=== PATIENT | female | born 1955 | race Caucasian/White ===

== ENCOUNTER → 2019-05-08 | Outpatient (CLI) | payer MEDICARE, BC ==
[~2019-05-08] MED LIST: ASPI81CH PO; ATEN100 PO; ATORVASTATIN CA20 MG PO; LEVSOD75 PO; METF500C PO
[2019-05-08 14:10] LABS: BASOPHILS ABSOLUTE AUTO 0.05 K/mm3 (0.00-0.23); BASOPHILS PERCENT AUTO 1 % (0-2); EOSINOPHILS ABSOLUTE AUTO 0.16 K/mm3 (0.00-0.68); EOSINOPHILS PERCENT AUTO 2 % (0-6); Hematocrit 44.7 % (33.0-51.0); Hemoglobin 15.2 g/dL (11.5-16.0); IMMATURE GRAN ABSOLUTE AUTO 0.03 K/mm3 (0.00-0.10); IMMATURE GRAN PERCENT AUTO 0 % (0-1); LYMPHOCYTES ABSOLUTE AUTO 2.05 K/mm3 (0.84-5.20); LYMPHOCYTES PERCENT AUTO 22 % (21-46); MONOCYTES ABSOLUTE AUTO 0.54 K/mm3 (0.16-1.47); MONOCYTES PERCENT AUTO 6 % (4-13); Mean Corpuscular HGB 31.7 pg (26.0-34.0); Mean Corpuscular Volume 93 fL (80-100); Mean Platelet Volume 10.2 fL (9.1-12.4); NEUTROPHILS ABSOLUTE AUTO 6.55 K/mm3 (1.96-9.15); NEUTROPHILS PERCENT AUTO 70 % (41-73); Platelet Count 272 K/mm3 (150-400); RDW Coefficient Variation 11.9 % (11.7-14.2); RDW Standard Deviation 40.9 fL (35.1-46.3); White Blood Cell Count 9.38 K/mm3 (4.00-11.30)
[2019-05-08 14:40] LABS: Alanine Aminotransfer (ALT/SGP 23 U/L (12-78); Albumin, Blood 4.3 g/dL (3.4-5.0); Albumin/Globulin Ratio 1.1 (0.8-1.8); Alk Phos 98 U/L (40-126); Anion Gap 13 mmol/L (6-16); Aspartate Aminotrans (AST/SGOT 23 U/L (12-37); Bilirubin, Total 0.8 mg/dL (0.1-1.0); Blood Urea Nitrogen 18 mg/dL (8-24); Bun/Creatinine Ratio 23.1 (12.0-20.0); CO2, Blood 28 mmol/L (21-32); CPK Creatine Kinase 88 U/L (26-192); Calcium, Blood 9.3 mg/dL (8.5-10.1); Chloride, Blood 103 mmol/L (98-108); Creatinine, Blood 0.78 mg/dL (0.40-1.00); Globulin, Blood 3.8 g/dL (2.2-4.0); Glomerular Filtration Rate >60 (60-); Glucose, Blood 105 mg/dL (70-99); Potassium, Blood 4.3 mmol/L (3.5-5.5); Sodium, Blood 144 mmol/L (136-145); Total Protein, Blood 8.1 g/dL (6.4-8.2)
== END | disposition home or self-care (01) ==
LOC: LAB EV 14:05 → LAB SHORT 14:05
PROVIDERS: Family Medicine
DX: M35.3 Polymyalgia rheumatica (principal)
CPT/HCPCS: 80053; 82550; 85025; 85651; 86140

== ENCOUNTER 2020-09-08 11:46 | Day surgery (SDC) | payer MEDICARE, BC ==
[~2020-09-08] VITALS: Ht 162.6 cm; Wt 78.1 kg
[~2020-09-08 11:46] MED LIST changes: +ALEVE220 MG PO; +CALCIUM CARBON500 M1 PO; +FOLI1 PO; +METTREX2.5 PO; +MULTIPLE VITAM1 EACH PO; +Prinivil10 MG PO; +TOPROL XL25 MG PO
== END 2020-09-08 14:05 | disposition home or self-care (01) ==
LOC: ORSCSDS 11:46
PROVIDERS: Internal Medicine Gastroenterology
PROC: 0DB58ZX Excision of Esophagus, Via Natural or Artificial Opening Endoscopic, Diagnostic (ICD-10-PCS; principal; 2020-09-08 13:15)
DX: R13.10 Dysphagia, unspecified (principal); C15.5 Malignant neoplasm of lower third of esophagus; K44.9 Diaphragmatic hernia without obstruction or gangrene; E11.9 Type 2 diabetes mellitus without complications; I10 Essential (primary) hypertension; E78.5 Hyperlipidemia, unspecified; E03.9 Hypothyroidism, unspecified; E66.9 Obesity, unspecified; Z68.30 Body mass index [BMI] 30.0-30.9, adult; Z79.899 Other long term (current) drug therapy; Z79.82 Long term (current) use of aspirin
CPT/HCPCS: 82947; 88305; 88341; 88342; 88360; J2704; J7120

== ENCOUNTER → 2020-09-27 | Outpatient (CLI) | payer MEDICARE ==
[2020-09-27 14:32] LABS: BASOPHILS ABSOLUTE AUTO 0.05 K/mm3 (0.00-0.23); BASOPHILS PERCENT AUTO 1 % (0-2); EOSINOPHILS ABSOLUTE AUTO 0.09 K/mm3 (0.00-0.68); EOSINOPHILS PERCENT AUTO 1 % (0-6); Hematocrit 40.1 % (33.0-51.0); Hemoglobin 13.5 g/dL (11.5-16.0); IMMATURE GRAN ABSOLUTE AUTO 0.01 K/mm3 (0.00-0.10); IMMATURE GRAN PERCENT AUTO 0 % (0-1); LYMPHOCYTES ABSOLUTE AUTO 1.64 K/mm3 (0.84-5.20); LYMPHOCYTES PERCENT AUTO 24 % (21-46); MONOCYTES PERCENT AUTO 6 % (4-13); Mean Corpuscular HGB 32.2 pg (26.0-34.0); Mean Corpuscular HGB Conc 33.7 g/dL (31.5-36.5); Mean Corpuscular Volume 96 fL (80-100); Mean Platelet Volume 11.4 fL (9.1-12.4); NEUTROPHILS ABSOLUTE AUTO 4.52 K/mm3 (1.96-9.15); NEUTROPHILS PERCENT AUTO 68 % (41-73); Platelet Count 245 K/mm3 (150-400); RDW Coefficient Variation 12.9 % (11.7-14.2); RDW Standard Deviation 45.1 fL (35.1-46.3); Red Blood Cell Count 4.19 M/mm3 (3.80-5.20); White Blood Cell Count 6.71 K/mm3 (4.00-11.30)
== END | disposition home or self-care (01) ==
LOC: LAB SHORT 10:55 → LAB 10:55
PROVIDERS: Nurse Practitioner
DX: R10.32 Left lower quadrant pain (principal)
CPT/HCPCS: 85025

== ENCOUNTER 2021-01-29 06:17 | Day surgery (SDC) | payer MEDICARE ==
[~2021-01-29 06:17] MED LIST changes: +NAPR220 PO; +ONDA4ODT MM; +SUCR1 PO
--- NOTE | 2021-01-29 07:44 | NUR ---
[facility]. SEE DOWNTIME PAPER WORK FOR ADMISSION HISTORY AND MEDICATIONS TAKEN.
--- NOTE | 2021-01-29 10:17 | NUR ---
PT RESTING COMFORTABLY. VSS.NADN. EATING BREAKFAST AT THIS TIME. R FEMORAL SITE REMAINS CLEAR. NO BLEEDING OR HEMATOMA NOTED. CALL LIGHT WITHIN REACH.
--- NOTE | 2021-01-29 11:58 | NUR ---
PT AMBULATES TO RESTROOM AND BACK WITHOUT DIFF. PT MEDIPORT FLUSHED WITH [facility] UNITS/5ML AND DC'D. INTACT. BANDAID APPLIED. NO BLEEDING NOTED. VSS. R FEMORAL SITE REMAINS CLEAR. PT DRESSES SELF WITHOUT DIFF.
--- NOTE | 2021-01-29 12:10 | NUR ---
PT VERBALIZES UNDERSTANDING WRITTEN AND VERBAL ORDERS. PT DC'D TO HOME VIA WC BY THIS NURSE.
== END 2021-01-29 22:52 | disposition home or self-care (01) ==
LOC: MHTC 06:17
DX: C15.9 Malignant neoplasm of esophagus, unspecified (principal); I10 Essential (primary) hypertension; E11.9 Type 2 diabetes mellitus without complications; E03.9 Hypothyroidism, unspecified; Z85.3 Personal history of malignant neoplasm of breast; Z79.84 Long term (current) use of oral hypoglycemic drugs
CPT/HCPCS: 36245; 75726; 76937; 99152; 99153; C1760; C1769; C1887; C1894; J1642; J1644; J2250; J3010; J7030; J7040; J7050; Q9967

== ENCOUNTER → 2021-08-17 | Outpatient (CLI) | payer MEDICARE ==
[2021-08-17 12:00] LABS: BASOPHILS ABSOLUTE AUTO 0.06 K/mm3 (0.00-0.23); BASOPHILS PERCENT AUTO 1 % (0-2); EOSINOPHILS PERCENT AUTO 1 % (0-6); Hematocrit 33.3 % (33.0-51.0); Hemoglobin 10.5 g/dL (11.5-16.0); IMMATURE GRAN ABSOLUTE AUTO 0.05 K/mm3 (0.00-0.10); IMMATURE GRAN PERCENT AUTO 1 % (0-1); LYMPHOCYTES ABSOLUTE AUTO 0.51 K/mm3 (0.84-5.20); LYMPHOCYTES PERCENT AUTO 5 % (21-46); MONOCYTES ABSOLUTE AUTO 0.79 K/mm3 (0.16-1.47); MONOCYTES PERCENT AUTO 7 % (4-13); Mean Corpuscular HGB 27.5 pg (26.0-34.0); Mean Corpuscular HGB Conc 31.5 g/dL (31.5-36.5); Mean Corpuscular Volume 87 fL (80-100); Mean Platelet Volume 9.5 fL (9.1-12.4); NEUTROPHILS ABSOLUTE AUTO 9.56 K/mm3 (1.96-9.15); NEUTROPHILS PERCENT AUTO 86 % (41-73); Platelet Count 287 K/mm3 (150-400); RDW Coefficient Variation 14.6 % (11.7-14.2); RDW Standard Deviation 45.3 fL (35.1-46.3); Red Blood Cell Count 3.82 M/mm3 (3.80-5.20); White Blood Cell Count 11.07 K/mm3 (4.00-11.30)
[2021-08-17 12:14] LABS: Albumin, Blood 2.9 g/dL (3.4-5.0); Albumin/Globulin Ratio 0.6 (0.8-1.8); Bilirubin, Total 0.5 mg/dL (0.1-1.0); Bun/Creatinine Ratio 27.8 (12.0-20.0); Calcium, Blood 8.5 mg/dL (8.5-10.1); Creatinine, Blood 0.72 mg/dL (0.40-1.00); Globulin, Blood 4.6 g/dL (2.2-4.0); Potassium, Blood 4.1 mmol/L (3.5-5.5); Total Protein, Blood 7.5 g/dL (6.4-8.2)
== END | disposition home or self-care (01) ==
LOC: LAB SHORT 11:55
PROVIDERS: Physician Assistant Medical
DX: I95.9 Hypotension, unspecified (principal)
CPT/HCPCS: 80053; 85025

== ENCOUNTER 2021-09-06 09:19 | Inpatient (IN) | payer MEDICARE ==
[~2021-09-06] VITALS: Ht 162.6 cm; Wt 69.0 kg
[2021-09-06 10:12] LABS: BASOPHILS ABSOLUTE AUTO 0.08 K/mm3 (0.00-0.23); BASOPHILS PERCENT AUTO 0 % (0-2); EOSINOPHILS ABSOLUTE AUTO 0.09 K/mm3 (0.00-0.68); EOSINOPHILS PERCENT AUTO 1 % (0-6); Hematocrit 26.4 % (33.0-51.0); Hemoglobin 8.5 g/dL (11.5-16.0); IMMATURE GRAN ABSOLUTE AUTO 0.23 K/mm3 (0.00-0.10); IMMATURE GRAN PERCENT AUTO 1 % (0-1); LYMPHOCYTES ABSOLUTE AUTO 0.59 K/mm3 (0.84-5.20); LYMPHOCYTES PERCENT AUTO 3 % (21-46); MONOCYTES ABSOLUTE AUTO 1.95 K/mm3 (0.16-1.47); MONOCYTES PERCENT AUTO 10 % (4-13); Mean Corpuscular HGB 26.7 pg (26.0-34.0); Mean Corpuscular HGB Conc 32.2 g/dL (31.5-36.5); Mean Corpuscular Volume 83 fL (80-100); Mean Platelet Volume 9.4 fL (9.1-12.4); NEUTROPHILS ABSOLUTE AUTO 15.73 K/mm3 (1.96-9.15); NEUTROPHILS PERCENT AUTO 84 % (41-73); Platelet Count 377 K/mm3 (150-400); RDW Coefficient Variation 16.1 % (11.7-14.2); RDW Standard Deviation 49.1 fL (35.1-46.3); Red Blood Cell Count 3.18 M/mm3 (3.80-5.20); White Blood Cell Count 18.67 K/mm3 (4.00-11.30)
[2021-09-06 10:28] LABS: Albumin, Blood 1.9 g/dL (3.4-5.0); Albumin/Globulin Ratio 0.4 (0.8-1.8); Bilirubin, Total 0.5 mg/dL (0.1-1.0); Calcium, Blood 8.5 mg/dL (8.5-10.1); Creatinine, Blood 0.48 mg/dL (0.40-1.00); Globulin, Blood 4.6 g/dL (2.2-4.0); Potassium, Blood 3.9 mmol/L (3.5-5.5); Total Protein, Blood 6.5 g/dL (6.4-8.2)
[2021-09-06] MEDS ORDERED: LEVFLO500 PO ×2 (13:23)
[2021-09-06] MEDS ORDERED: TRAM50 PO ×2 (13:25)
[2021-09-06] MEDS ORDERED: ACET500 PO ×2 (13:25)
[2021-09-06] MEDS ORDERED: METO50ER PO ×2 (13:26)
[2021-09-06] MEDS ORDERED: SERT50 PO ×2 (13:27)
[2021-09-06] MEDS ORDERED: GABA300 PO ×2 (13:27)
[2021-09-06 13:34] LABS: Influenza A, PCR NEGATIVE (NEGATIVE); Influenza B, PCR NEGATIVE (NEGATIVE); Resp Syncytial Virus, PCR NEGATIVE (NEGATIVE); SARS-Cov-2 (COVID-19) PCR, MMC NEGATIVE (NEGATIVE)
--- NOTE | 2021-09-06 14:34 | NUR ---
09/06/21 1434 Mi Nazario NO PREOP ANTIBIOTICS ORDERED PER . PATIENT WILL BEGIN ANTIBIOTICS POST OPERATIVELY PER .
--- NOTE | 2021-09-06 15:38 | NUR ---
MONITOR SHOWS RESP AT 29 AND THEY WERE NEVER 29. 18 WAS THE HIGHEST I NOTED
[2021-09-06] MEDS ORDERED: IMODIUM A-D2 M1 PO ×2 (18:05)
[2021-09-07 03:55] LABS: BASOPHILS PERCENT AUTO 1 % (0-2); EOSINOPHILS ABSOLUTE AUTO 0.21 K/mm3 (0.00-0.68); EOSINOPHILS PERCENT AUTO 1 % (0-6); Hematocrit 28.7 % (33.0-51.0); Hemoglobin 8.9 g/dL (11.5-16.0); IMMATURE GRAN PERCENT AUTO 1 % (0-1); LYMPHOCYTES ABSOLUTE AUTO 0.53 K/mm3 (0.84-5.20); LYMPHOCYTES PERCENT AUTO 3 % (21-46); MONOCYTES ABSOLUTE AUTO 1.04 K/mm3 (0.16-1.47); MONOCYTES PERCENT AUTO 7 % (4-13); Mean Corpuscular HGB 26.7 pg (26.0-34.0); Mean Corpuscular Volume 86 fL (80-100); Mean Platelet Volume 9.3 fL (9.1-12.4); NEUTROPHILS PERCENT AUTO 88 % (41-73); Platelet Count 389 K/mm3 (150-400); RDW Coefficient Variation 16.3 % (11.7-14.2); RDW Standard Deviation 51.2 fL (35.1-46.3); Red Blood Cell Count 3.33 M/mm3 (3.80-5.20); White Blood Cell Count 15.68 K/mm3 (4.00-11.30)
[2021-09-07 04:14] LABS: Albumin, Blood 1.9 g/dL (3.4-5.0); Albumin/Globulin Ratio 0.4 (0.8-1.8); Bilirubin, Total 0.3 mg/dL (0.1-1.0); Bun/Creatinine Ratio 20.6 (12.0-20.0); Calcium, Blood 8.8 mg/dL (8.5-10.1); Creatinine, Blood 0.44 mg/dL (0.40-1.00); Globulin, Blood 4.8 g/dL (2.2-4.0); Potassium, Blood 3.7 mmol/L (3.5-5.5); Total Protein, Blood 6.7 g/dL (6.4-8.2)
--- NOTE | 2021-09-07 06:29 | NUR ---
POD 1 S/P ABD WALL ABCESS I&D. PT VSS T/O NIGHT. DRESSING CHANGED X1 R/T SATURATION OF PURULANT DRNG. RUBEN DRAIN INTACT. PAIN MGD W/0.5MG DILAUDID W/REP RELIEF. PT DENIED N/V, IS VOIDING URINE W/O DIFFICULTY. IVF AND ABX CONT PER ORDERS. PT UP IN ROOM W/SBA.
--- NOTE | 2021-09-07 11:41 | NUR ---
Spiritual care visit conducted. Patient is lying in bed and alert. Pt immediately tells me about her cancer, her surgeries and her current medical condition. Pt is tearful at times as she talks about the weightiness of her prognosis and the love she has for her family. She discusses her deep desire to live and thrive in the midst of her her medical problems. She also shares about her zaina and how she finds strength in her prayers and Bible reading. I normalize her thoughts and emotions, reinforce helpful attitudes and practices and provide therapeutic listening, gentle bereavement counselor, encouragement, and prayer. Pt responds well and shows signs of being comforted and having increased peace. I will continue to remain available to patient and family.
--- NOTE | 2021-09-07 18:28 | NUR ---
SHIFT SUMMARY PATIENT ALERT AND ORIENTED THROUGHOUT SHIFT. POD #1 I&D OF ABD ABSCESS. RUBEN DRAIN, SIGNIFICANT DRAINAGE REQUIRING MULTIPLE DRESSING CHANGES PER SHIFT. J TUBE ALSO LEAKING ON DRAIN SPONGES. TOLERATING FULL LIQUIDS. MEDICATED FOR PAIN WITH LIQUID ACETAMINOPHEN AND IBUPROFEN. WILL REPORT OFF TO NOZZLEMAN.
--- NOTE | 2021-09-08 01:18 | NUR ---
DRESSING CHANGE: DRESSING CHANGED, SMALL AMT PURULANT DRNG FROM RUBEN SITES, J-TUBE SITE SATURATED W/GREEN/PURULANT DRNG. PT MARY WELL. LEFT ABD APPEARS MORE RED/FIRM THAN FROM PREV ASSESSMENT.
[2021-09-08 03:34] LABS: Vancomycin, Trough 10.4 ug/mL (5.0-10.0)
--- NOTE | 2021-09-08 06:49 | NUR ---
POD 2 S/P ABD I&D. PT VSS T/O NIGHT. DRESSING CHANGED X1 R/T SATURATION OF J TUBE SITE. ONLY SMALLAMT FROM RUBEN DRAIN. LEFT ABD APPEARS MORE RED AND FIRM THIS AM. PAIN MGD W/TYLENOL W/REP RELIEF. PO INTAKE MINIMAL, PT DENIED N/V.
[2021-09-09 05:44] LABS: BASOPHILS ABSOLUTE AUTO 0.05 K/mm3 (0.00-0.23); BASOPHILS PERCENT AUTO 1 % (0-2); EOSINOPHILS ABSOLUTE AUTO 0.24 K/mm3 (0.00-0.68); EOSINOPHILS PERCENT AUTO 3 % (0-6); Hematocrit 26.8 % (33.0-51.0); Hemoglobin 8.3 g/dL (11.5-16.0); IMMATURE GRAN ABSOLUTE AUTO 0.17 K/mm3 (0.00-0.10); IMMATURE GRAN PERCENT AUTO 2 % (0-1); LYMPHOCYTES ABSOLUTE AUTO 0.53 K/mm3 (0.84-5.20); LYMPHOCYTES PERCENT AUTO 7 % (21-46); MONOCYTES ABSOLUTE AUTO 0.55 K/mm3 (0.16-1.47); MONOCYTES PERCENT AUTO 8 % (4-13); Mean Corpuscular HGB 26.4 pg (26.0-34.0); Mean Corpuscular Volume 85 fL (80-100); Mean Platelet Volume 9.3 fL (9.1-12.4); NEUTROPHILS ABSOLUTE AUTO 5.75 K/mm3 (1.96-9.15); NEUTROPHILS PERCENT AUTO 79 % (41-73); Platelet Count 437 K/mm3 (150-400); RDW Coefficient Variation 16.6 % (11.7-14.2); RDW Standard Deviation 51.3 fL (35.1-46.3); Red Blood Cell Count 3.14 M/mm3 (3.80-5.20); White Blood Cell Count 7.29 K/mm3 (4.00-11.30)
[2021-09-09 05:57] LABS: Magnesium, Blood 2.1 mg/dL (1.6-2.4)
[2021-09-09 05:58] LABS: Albumin, Blood 1.9 g/dL (3.4-5.0); Albumin/Globulin Ratio 0.5 (0.8-1.8); Bilirubin, Total 0.4 mg/dL (0.1-1.0); Bun/Creatinine Ratio 19.6 (12.0-20.0); Calcium, Blood 8.3 mg/dL (8.5-10.1); Creatinine, Blood 0.41 mg/dL (0.40-1.00); Globulin, Blood 4.2 g/dL (2.2-4.0); Potassium, Blood 3.4 mmol/L (3.5-5.5); Total Protein, Blood 6.1 g/dL (6.4-8.2)
--- NOTE | 2021-09-09 07:38 | NUR ---
POD 3 S/P ABD WALL ABCESS I&D. PT VSS T/O NIGHT. DRESSINGS CHANGED X1 R/T SATURATION W/PURULANT DRNG. TUBE FEEDS CONT T/O NIGHT CURRENT RATE OF 80 ML/HR, PT DENIED N/V, HAD 1 LIQ BM. PO INTAKE MINIMAL; IVF AND ABX CONT PER ORDERS. PT AMB INDEP IN ROOM, REP STRENGHT IMPROVING. PT WAS AWAKE FOR MUCH OF NIGHT, MEDICATED FOR PAIN PER EMAR, PT REP BEST RELIEF W/TYLENOL AND IBUPROFEN TOGETHER. PT AWAKE VISITING W/SISTER IN ROOM THIS AM.
[2021-09-09] MEDS ORDERED: LEVFLO500 PO ×2 (14:10)
[2021-09-09] MEDS ORDERED: MIRALAX17 GM PO ×2 (14:13)
--- NOTE | 2021-09-09 15:02 | NUR ---
DISCHARGE: PACKET PRINTED AND PT/PT SPOUSE EDUCATED. MEDS FAXED TO [email or web address]. PT EDUCATED ON DRESSING CHANGE. ABD AND GAUZE REMOVED, WOUND CLEANSED AND PROTECTIVE BARRIER CREAM APPLIED AND GAUZE/ABD REAPPLIED, SITE APPEARED WNL. NEW DRAIN DRESSING PLACE TO J-TUBE SITE, TUBE FLUSHED WITH 30ML OF WATER. PT SENT HOME WITH DRESSING SUPPLIES. PT TO BE CONTACTED BY HOME HEALTH. [facility] DEACCESSED BY NELLY SPENCE RN. PT LEFT UNIT VIA WHEELCHAIR WITH SOSA SANCHEZ AT ABOUT 1500
== END 2021-09-09 14:59 | disposition home health service (06) | DRG 393 ==
LOC: ER 09:19 → SURS 13:24 → MEDS 13:24 → SURS 15:32
PROVIDERS: Emergency Medicine; Surgery; ADMIT Internal Medicine
PROC: 0H97XZZ Drainage of Abdomen Skin, External Approach (ICD-10-PCS; principal; 2021-09-06 13:30)
DX: K94.12 Enterostomy infection (principal); A41.81 Sepsis due to Enterococcus; L02.211 Cutaneous abscess of abdominal wall; E87.1 Hypo-osmolality and hyponatremia; L03.311 Cellulitis of abdominal wall; Z20.822 Contact with and (suspected) exposure to COVID-19; B95.2 Enterococcus as the cause of diseases classified elsewhere; D72.829 Elevated white blood cell count, unspecified; R00.2 Palpitations; E86.0 Dehydration; F32.A Depression, unspecified; Z85.01 Personal history of malignant neoplasm of esophagus; Z92.3 Personal history of irradiation; Z90.89 Acquired absence of other organs; Z98.890 Other specified postprocedural states; Z79.84 Long term (current) use of oral hypoglycemic drugs; Z79.899 Other long term (current) drug therapy; Z88.5 Allergy status to narcotic agent; Z88.6 Allergy status to analgesic agent; Z92.21 Personal history of antineoplastic chemotherapy; Y73.2 Prosthetic and other implants, materials and accessory gastroenterology and urology devices associated with adverse incidents
CPT/HCPCS: 0241U; 36415; 49465; 74177; 80048; 80053; 80202; 83605; 83735; 84100; 85025; 87040; 87070; 87075; 87077; 87186; 87205; 93005; 93010; 99285-25; A9270; J0295; J1170; J1642; J2250; J2370; J2405; J2543; J2704; J3010; J3370; J7030; J7050; J7060; Q9963; Q9967

== ENCOUNTER 2021-09-16 09:25 | Emergency (ER) | payer MEDICARE ==
[~2021-09-16] VITALS: Ht 162.6 cm; Wt 62.6 kg
[~2021-09-16 09:25] MED LIST changes: +ACET500 PO; +GABA300 PO; +IMODIUM A-D2 M1 PO; +LEVFLO500 PO; +METO50ER PO; +MIRALAX17 GM PO; +SERT50 PO; +TRAM50 PO
[2021-09-16 10:21] LABS: BASOPHILS ABSOLUTE AUTO 0.07 K/mm3 (0.00-0.23); BASOPHILS PERCENT AUTO 1 % (0-2); EOSINOPHILS ABSOLUTE AUTO 0.12 K/mm3 (0.00-0.68); EOSINOPHILS PERCENT AUTO 1 % (0-6); Hematocrit 33.9 % (33.0-51.0); Hemoglobin 10.5 g/dL (11.5-16.0); IMMATURE GRAN ABSOLUTE AUTO 0.03 K/mm3 (0.00-0.10); IMMATURE GRAN PERCENT AUTO 0 % (0-1); LYMPHOCYTES PERCENT AUTO 7 % (21-46); MONOCYTES ABSOLUTE AUTO 0.59 K/mm3 (0.16-1.47); MONOCYTES PERCENT AUTO 7 % (4-13); Mean Corpuscular HGB 26.5 pg (26.0-34.0); Mean Corpuscular Volume 86 fL (80-100); Mean Platelet Volume 9.2 fL (9.1-12.4); NEUTROPHILS ABSOLUTE AUTO 7.58 K/mm3 (1.96-9.15); NEUTROPHILS PERCENT AUTO 84 % (41-73); Platelet Count 463 K/mm3 (150-400); RDW Coefficient Variation 17.6 % (11.7-14.2); RDW Standard Deviation 54.4 fL (35.1-46.3); Red Blood Cell Count 3.96 M/mm3 (3.80-5.20); White Blood Cell Count 8.99 K/mm3 (4.00-11.30)
[2021-09-16 10:41] LABS: Albumin, Blood 2.6 g/dL (3.4-5.0); Albumin/Globulin Ratio 0.6 (0.8-1.8); Bilirubin, Total 0.4 mg/dL (0.1-1.0); Bun/Creatinine Ratio 36.2 (12.0-20.0); Creatinine, Blood 0.5 mg/dL (0.40-1.00); Globulin, Blood 4.7 g/dL (2.2-4.0); Potassium, Blood 4.6 mmol/L (3.5-5.5); Total Protein, Blood 7.3 g/dL (6.4-8.2)
== END 2021-09-16 12:47 | disposition home or self-care (01) ==
LOC: ER 09:25
PROVIDERS: Physician Assistant
DX: L02.211 Cutaneous abscess of abdominal wall (principal); Z79.899 Other long term (current) drug therapy; Z79.84 Long term (current) use of oral hypoglycemic drugs; Z88.5 Allergy status to narcotic agent; Z98.890 Other specified postprocedural states; Z93.4 Other artificial openings of gastrointestinal tract status
CPT/HCPCS: 36415; 74177; 80053; 85025; J1885; Q9967

== ENCOUNTER 2021-09-21 02:48 | Day surgery (SDC) | payer MEDICARE | END 2021-09-21 23:13 | disposition home or self-care (01) | LOC: WOUND 02:48 | DX: T81.31XA Disruption of external operation (surgical) wound, not elsewhere classified, initial encounter (principal); I10 Essential (primary) hypertension; E11.9 Type 2 diabetes mellitus without complications; E03.9 Hypothyroidism, unspecified; E11.59 Type 2 diabetes mellitus with other circulatory complications; E78.5 Hyperlipidemia, unspecified; Z88.5 Allergy status to narcotic agent; Z88.6 Allergy status to analgesic agent | CPT/HCPCS: G0463 ==

== ENCOUNTER 2021-09-23 12:07 | Day surgery (SDC) | payer MEDICARE | END 2021-09-23 22:47 | disposition home or self-care (01) | LOC: WOUND 12:07 | DX: T81.31XA Disruption of external operation (surgical) wound, not elsewhere classified, initial encounter (principal); L02.211 Cutaneous abscess of abdominal wall; I10 Essential (primary) hypertension; E11.59 Type 2 diabetes mellitus with other circulatory complications; E78.5 Hyperlipidemia, unspecified | CPT/HCPCS: A9270 ==

== ENCOUNTER 2021-09-25 09:50 | Day surgery (SDC) | payer MEDICARE | END 2021-09-25 23:12 | disposition home or self-care (01) | LOC: WOUND 09:50 | DX: T81.31XS Disruption of external operation (surgical) wound, not elsewhere classified, sequela (principal); L02.211 Cutaneous abscess of abdominal wall; I10 Essential (primary) hypertension; E11.59 Type 2 diabetes mellitus with other circulatory complications; E78.5 Hyperlipidemia, unspecified | CPT/HCPCS: G0463 ==

== ENCOUNTER 2021-09-29 01:24 | Day surgery (SDC) | payer MEDICARE | END 2021-09-29 05:39 | disposition home or self-care (01) | LOC: WOUND 01:24 | DX: L02.211 Cutaneous abscess of abdominal wall (principal); T81.30XS Disruption of wound, unspecified, sequela; I10 Essential (primary) hypertension; E11.59 Type 2 diabetes mellitus with other circulatory complications; E78.5 Hyperlipidemia, unspecified | CPT/HCPCS: A9270; G0463 ==

== ENCOUNTER 2021-12-28 14:47 | Observation (INO) | payer MEDICARE ==
[~2021-12-28] VITALS: Ht 162.6 cm; Wt 50.4 kg
[2021-12-28 15:46] LABS: BASOPHILS ABSOLUTE AUTO 0.07 K/mm3 (0.00-0.23); BASOPHILS PERCENT AUTO 1 % (0-2); EOSINOPHILS ABSOLUTE AUTO 0.01 K/mm3 (0.00-0.68); EOSINOPHILS PERCENT AUTO 0 % (0-6); Hematocrit 31.4 % (33.0-51.0); Hemoglobin 10.4 g/dL (11.5-16.0); IMMATURE GRAN ABSOLUTE AUTO 0.06 K/mm3 (0.00-0.10); IMMATURE GRAN PERCENT AUTO 1 % (0-1); LYMPHOCYTES ABSOLUTE AUTO 0.82 K/mm3 (0.84-5.20); LYMPHOCYTES PERCENT AUTO 8 % (21-46); MONOCYTES ABSOLUTE AUTO 1.35 K/mm3 (0.16-1.47); MONOCYTES PERCENT AUTO 12 % (4-13); Mean Corpuscular HGB 28.7 pg (26.0-34.0); Mean Corpuscular HGB Conc 33.1 g/dL (31.5-36.5); Mean Corpuscular Volume 87 fL (80-100); Mean Platelet Volume 10.2 fL (9.1-12.4); NEUTROPHILS ABSOLUTE AUTO 8.56 K/mm3 (1.96-9.15); NEUTROPHILS PERCENT AUTO 79 % (41-73); Platelet Count 309 K/mm3 (150-400); RDW Coefficient Variation 17.6 % (11.7-14.2); RDW Standard Deviation 54.5 fL (35.1-46.3); Red Blood Cell Count 3.62 M/mm3 (3.80-5.20); White Blood Cell Count 10.87 K/mm3 (4.00-11.30)
[2021-12-28 16:06] LABS: Albumin, Blood 2.5 g/dL (3.4-5.0); Albumin/Globulin Ratio 0.6 (0.8-1.8); Bilirubin, Total 0.5 mg/dL (0.1-1.0); Bun/Creatinine Ratio 17.1 (12.0-20.0); Calcium, Blood 8.9 mg/dL (8.5-10.1); Creatinine, Blood 0.64 mg/dL (0.40-1.00); Globulin, Blood 3.9 g/dL (2.2-4.0); Potassium, Blood 3.3 mmol/L (3.5-5.5); Total Protein, Blood 6.4 g/dL (6.4-8.2)
[2021-12-28 20:26] LABS: Anti-Xa UFH, PHA Monitoring <0.10 IU/mL; International Normalized Ratio 1.13; Prothrombin Time Results 11.8 Sec (9.7-11.5)
[2021-12-28] MEDS ORDERED: MIRT15ST PO (21:25)
[2021-12-29 04:45] LABS: Hemoglobin 9.9 g/dL (11.5-16.0); Mean Corpuscular HGB 27.7 pg (26.0-34.0); Mean Corpuscular HGB Conc 31.9 g/dL (31.5-36.5); Mean Corpuscular Volume 87 fL (80-100); Mean Platelet Volume 10.5 fL (9.1-12.4); Platelet Count 263 K/mm3 (150-400); RDW Coefficient Variation 17.6 % (11.7-14.2); RDW Standard Deviation 54.6 fL (35.1-46.3); Red Blood Cell Count 3.58 M/mm3 (3.80-5.20); White Blood Cell Count 9.36 K/mm3 (4.00-11.30)
[2021-12-29 05:13] LABS: Bun/Creatinine Ratio 22.4 (12.0-20.0); Calcium, Blood 8.2 mg/dL (8.5-10.1); Creatinine, Blood 0.4 mg/dL (0.40-1.00); Potassium, Blood 3.4 mmol/L (3.5-5.5)
--- NOTE | 2021-12-29 06:18 | NUR ---
SHIFT SUMMARY: ASSUMED CARE FROM RN IN ED. PT ARRIVING ON UNIT AT APPOXIMATELY 2130. A&OX4. ABLE TO AMBULATE FORM GURNEY TO BED. PT REPORTS HX OR RECENT FALL AT HOME, GAIT UNSTEADY, SBA NECESSARY FOR SAFETY. HR IS SR-ST IN THE LOW 100'S. AFEBRILE. COMPLAINING OF MIDSTERNAL PAIN THAT INCREASES WITH INSPIRATION 6/10. RECEIVED RELIEF FROM IV FENTYNAL. DENIES SOB BUT STATES UNABLE TO TAKE DEEP BREATHS DUE TO PAIN. VOIDING CLEAR, YELLOW URINE WITHOUT DIFFICUTLY. HEPRIN GETT INFUSING ORDERED, SEE EMAR. K RIDER INFUSED ORDERED. NO ACUTE EVENTS OVERNIGHT. CALL LIGHT IN REACH.
[2021-12-29] MEDS ORDERED: XARELTO15 MG PO (11:23)
[2021-12-29] MEDS ORDERED: XARELTO20 MG PO (11:23)
--- NOTE | 2021-12-29 12:14 | NUR ---
UPDATE DISCHARGE INSTRUCTIONS PROVIDED TO PT. PT EDUCATED ON MEDICATIONS AND CHANGES. ALL QUESTIONS ANSWERED. SPOUSE AT BEDSIDE. PT TO BE TAKEN OUT BY WC
== END 2021-12-29 12:33 | disposition home or self-care (01) ==
LOC: ER 14:47 → PCU 14:48
PROVIDERS: Pharmacist; Physician Assistant; ADMIT Internal Medicine
DX: I26.99 Other pulmonary embolism without acute cor pulmonale (principal); C15.9 Malignant neoplasm of esophagus, unspecified; E87.6 Hypokalemia; D64.9 Anemia, unspecified; Z88.5 Allergy status to narcotic agent
CPT/HCPCS: 36415; 71046; 71260; 80048; 80053; 83690; 84484; 85025; 85027; 85520; 85610; 85730; 93005; 93010; 93306; 93970; 96365-59; 96375; 96376; 99285-25; A9270; G0378; J1644; J3010; J3480; J7030; J7050; Q9967

== ENCOUNTER 2022-02-03 18:25 | Inpatient (IN) | payer MEDICARE ==
[~2022-02-03] VITALS: Ht 162.6 cm; Wt 49.3 kg
[~2022-02-03 18:25] MED LIST changes: +MIRT15ST PO; +XARELTO15 MG PO; +XARELTO20 MG PO
[2022-02-03 20:33] LABS: BASOPHILS ABSOLUTE AUTO 0.04 K/mm3 (0.00-0.23); BASOPHILS PERCENT AUTO 0 % (0-2); EOSINOPHILS PERCENT AUTO 0 % (0-6); Hemoglobin 6.5 g/dL (11.5-16.0); IMMATURE GRAN ABSOLUTE AUTO 0.53 K/mm3 (0.00-0.10); IMMATURE GRAN PERCENT AUTO 3 % (0-1); LYMPHOCYTES ABSOLUTE AUTO 0.53 K/mm3 (0.84-5.20); LYMPHOCYTES PERCENT AUTO 3 % (21-46); MONOCYTES ABSOLUTE AUTO 0.68 K/mm3 (0.16-1.47); MONOCYTES PERCENT AUTO 4 % (4-13); Mean Corpuscular HGB 29.4 pg (26.0-34.0); Mean Corpuscular HGB Conc 32.5 g/dL (31.5-36.5); Mean Corpuscular Volume 91 fL (80-100); Mean Platelet Volume 10.2 fL (9.1-12.4); NEUTROPHILS ABSOLUTE AUTO 13.82 K/mm3 (1.96-9.15); NEUTROPHILS PERCENT AUTO 89 % (41-73); NRBC ABSOLUTE 0.02 K/mm3 (0.00-0.02); NRBC Auto 0.1 /100 WBC (0.0-0.2); Platelet Count 196 K/mm3 (150-400); RDW Coefficient Variation 20.6 % (11.7-14.2); RDW Standard Deviation 60.8 fL (35.1-46.3); Red Blood Cell Count 2.21 M/mm3 (3.80-5.20)
[2022-02-03 20:51] LABS: Albumin, Blood 2.1 g/dL (3.4-5.0); Albumin/Globulin Ratio 0.7 (0.8-1.8); Bilirubin, Total 0.2 mg/dL (0.1-1.0); Bun/Creatinine Ratio 20.2 (12.0-20.0); Calcium, Blood 7.8 mg/dL (8.5-10.1); Creatinine, Blood 0.54 mg/dL (0.40-1.00); Globulin, Blood 3.2 g/dL (2.2-4.0); Potassium, Blood 3.4 mmol/L (3.5-5.5); Total Protein, Blood 5.3 g/dL (6.4-8.2)
[2022-02-03 22:15] LABS: Influenza A, PCR NEGATIVE (NEGATIVE); Influenza B, PCR NEGATIVE (NEGATIVE); Resp Syncytial Virus, PCR NEGATIVE (NEGATIVE); SARS-Cov-2 (COVID-19) PCR, MMC NEGATIVE (NEGATIVE)
[2022-02-04 05:40] LABS: BASOPHILS ABSOLUTE AUTO 0.03 K/mm3 (0.00-0.23); BASOPHILS PERCENT AUTO 0 % (0-2); EOSINOPHILS ABSOLUTE AUTO 0.01 K/mm3 (0.00-0.68); EOSINOPHILS PERCENT AUTO 0 % (0-6); Hematocrit 22.4 % (33.0-51.0); IMMATURE GRAN ABSOLUTE AUTO 0.15 K/mm3 (0.00-0.10); IMMATURE GRAN PERCENT AUTO 2 % (0-1); LYMPHOCYTES ABSOLUTE AUTO 0.81 K/mm3 (0.84-5.20); LYMPHOCYTES PERCENT AUTO 9 % (21-46); MONOCYTES ABSOLUTE AUTO 0.92 K/mm3 (0.16-1.47); MONOCYTES PERCENT AUTO 10 % (4-13); Mean Corpuscular HGB 28.7 pg (26.0-34.0); Mean Corpuscular HGB Conc 31.3 g/dL (31.5-36.5); Mean Corpuscular Volume 92 fL (80-100); Mean Platelet Volume 10.7 fL (9.1-12.4); NEUTROPHILS ABSOLUTE AUTO 7.25 K/mm3 (1.96-9.15); NEUTROPHILS PERCENT AUTO 79 % (41-73); Platelet Count 179 K/mm3 (150-400); RDW Coefficient Variation 18.9 % (11.7-14.2); RDW Standard Deviation 56.5 fL (35.1-46.3); Red Blood Cell Count 2.44 M/mm3 (3.80-5.20); White Blood Cell Count 9.17 K/mm3 (4.00-11.30)
[2022-02-04 06:03] LABS: Albumin/Globulin Ratio 0.7 (0.8-1.8); Bilirubin, Total 0.4 mg/dL (0.1-1.0); Bun/Creatinine Ratio 24.4 (12.0-20.0); Calcium, Blood 7.5 mg/dL (8.5-10.1); Creatinine, Blood 0.49 mg/dL (0.40-1.00); Globulin, Blood 2.9 g/dL (2.2-4.0); Magnesium, Blood 1.8 mg/dL (1.6-2.4); Potassium, Blood 3.3 mmol/L (3.5-5.5); Total Protein, Blood 4.9 g/dL (6.4-8.2)
--- NOTE | 2022-02-04 06:35 | NUR ---
SHIFT SUMMARY: PATIENT ARRIVED TO THE UNIT AROUND 0115. TRANSFERRED TO BED WITH 1 ASSIST. AOX3, IN GOOD SPIRIT. DENIES DIZZINESS UPON STANDING. 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 WAS PLACED ON XERELTO 2 WEEKS AGO, DECREASED DOWN ON DOSE RECENTLY, HAS HAD VEIW VOMITING MOMENTS OF SPOTTED BLOOD SPUTUM BUT WHEN SHE WENT TO THE BATHROOM LAST NIGHT, SHE HAD A LARGE LOOSE FLANK RED BLOOD STOOL. RECEIVED 1 UNIT OF PRBC IN ED. H/H THIS AM 10/16.4. NO PAIN NOTED. NO NAUSEA. HAS SLEPT SINCE SHE ARRIVED TO UNIT. STAGE 2 PRESSURE ULCER NOTED TO LEFT BUTTOCKS, PICTURE TAKEN AND IN CHART, DRESSING APPLIED. NS CONTINUES TO INFUSE WITH PROTONIX GTT. HR HAS DECREASED FROM 110 DOWN TO 90'S. VS WNL. PLAN IS FOR COBRA TRANSFER TO [place] DUE TO EXTENSIVE GASTRO HISTORY. CALL LIGHT REMAINS IN REACH.
[2022-02-04 08:26] LABS: Hematocrit 25.3 % (33.0-51.0); Hemoglobin 8.3 g/dL (11.5-16.0)
[2022-02-04 16:49] LABS: Hemoglobin 8.6 g/dL (11.5-16.0)
--- NOTE | 2022-02-04 18:02 | NUR ---
SHIFT SUMMARY PT HAS RECIEVED 1 UNIT OF PRBC TODAY, HGB REMAINS ABOVE 8 AT THIS TIME. VSS T/O THE DAY. PT CONTINUES TO HAVE RED STOOLS, DR GRANADOS CONTACTED FOR UPDATE AND POSSIBLE ADVANCE OF DIET. S/O AND FAMILY HAVE REMAINED AT THE BEDSIDE T/O THE DAY. VSS. PT DENIES SOB OR CP. PROTONIX REMAINS INFUSING. PT UP TO BATHROOM 1 PERSON ASSIST. DENIES PAIN UNTIL THE END OF THE SHIFT WHEN SHE REPORTS BLACKBURN AND TYLENOL SUSPENSION WAS ORDERED FOR PAIN. PT USES CALL LIGHT APPROPRIATELYE. ABD AOFT AND ROUND, SURGICAL SCARS NOTED FROM EXTENSIVE SURGICAL HX. BT ABSENT.
[2022-02-05] LABS: Hematocrit 24.9 % (33.0-51.0); Hemoglobin 8.4 g/dL (11.5-16.0)
--- NOTE | 2022-02-05 05:56 | NUR ---
SHIFT SUMMARY NO ACUTE EVENTS OVERNIGHT. PT ALERT AND ORIENTED X4. SR/ST 90-100'S. BP STABLE. ON RA SATS OVER 97%. PROTONIX GTT INFUSING AT 10ML/HR. HGB DROPPED FROM 8.6-8.4. NO BLOODY STOOL THIS EVENING. NO C/O PAIN OR DISCOMFORT. SBA FOR ADL'S. IN BED SLEEPING WITH CALL ALARM AT SIDE, WILL CONTINUE TO MONITOR UNTIL REPORT GIVEN TO ONCOMING RN
--- NOTE | 2022-02-05 07:19 | NUR ---
THIS WAS RECIEVING REPORT ON PT THIS AM, PT BEGAN WITH COUGHING EPISODE, BEGAN COUGHING UP COPIOUS AMOUNTS OF BLOOD AND CLOTS, APPROX 300ML TOTAL INTO EMESIS BAG. DR ABRAHAM WAS CALLED AT 0702, CBC WAS DRAWN REPEAT VITALS OBTAINED. PT NOTED TO BE HYPERTENSIVE WITH TACHYCARDIA ON MONITOR. DR GRANADOS CALLED WELL MESSAGE WAS LEFT WITH DR GRANADOS. ERADICATOR FROM ICU CONSULTED. DR ABRAHAM TO ROOM FOR ASSESSMENT, ERADICATOR FROM PCU TO ROOM FOR POWERGLIDE PLACEMENT PT ONLY HAS MEDIPORT ACCESS AT THIS TIME. THIS RN DISCUSSED CONCERNS WITH DR ABRAHAM ABOUT PT CONTIUING TO DETERIORATE, DECISION WAS MADE TO TRANSFER PT TO ICU FOR HIGHER LEVEL OF CARE. ERADICATOR ATTEMPTING POWERGLIDE PLACEMENT NOW
[2022-02-05 07:29] LABS: BASOPHILS ABSOLUTE AUTO 0.03 K/mm3 (0.00-0.23); BASOPHILS PERCENT AUTO 1 % (0-2); EOSINOPHILS ABSOLUTE AUTO 0.02 K/mm3 (0.00-0.68); EOSINOPHILS PERCENT AUTO 0 % (0-6); Hematocrit 26.7 % (33.0-51.0); Hemoglobin 8.8 g/dL (11.5-16.0); IMMATURE GRAN ABSOLUTE AUTO 0.08 K/mm3 (0.00-0.10); IMMATURE GRAN PERCENT AUTO 1 % (0-1); LYMPHOCYTES ABSOLUTE AUTO 1.06 K/mm3 (0.84-5.20); LYMPHOCYTES PERCENT AUTO 17 % (21-46); MONOCYTES ABSOLUTE AUTO 0.63 K/mm3 (0.16-1.47); MONOCYTES PERCENT AUTO 10 % (4-13); Mean Corpuscular HGB 30.2 pg (26.0-34.0); Mean Corpuscular Volume 92 fL (80-100); Mean Platelet Volume 9.8 fL (9.1-12.4); NEUTROPHILS ABSOLUTE AUTO 4.61 K/mm3 (1.96-9.15); NEUTROPHILS PERCENT AUTO 72 % (41-73); Platelet Count 222 K/mm3 (150-400); RDW Coefficient Variation 18.5 % (11.7-14.2); RDW Standard Deviation 54.7 fL (35.1-46.3); Red Blood Cell Count 2.91 M/mm3 (3.80-5.20); White Blood Cell Count 6.43 K/mm3 (4.00-11.30)
[2022-02-05 07:43] LABS: Bun/Creatinine Ratio 16.7 (12.0-20.0); Calcium, Blood 7.9 mg/dL (8.5-10.1); Creatinine, Blood 0.54 mg/dL (0.40-1.00); Potassium, Blood 3.2 mmol/L (3.5-5.5)
[2022-02-05 08:05] LABS: International Normalized Ratio 1.1; Prothrombin Time Results 11.5 Sec (9.7-11.5)
--- NOTE | 2022-02-05 09:00 | NUR ---
ICU TRANSFER PT RECEIVED FROM PCU 14 TO ICU 13 AT 0843. PT AWAKE, ALERT, ORIENTED X4. PT REPORTS FEELING "PUNY AND TIRED". UPON SLIDING PT OVER TO ICU BED, PT REPORTS ROOM SPINNING AND FEELING LIKE SHE MAY PASS OUT - SENSATION PASSED AFTER A FEW MOMENTS OF HOLDING STILL. MONITOR SHOWS SINUS TACH WITH HR 120-130, SBP 120-140, SPO2 99-100% ON ROOM AIR, RESP EVEN AND UNLABORED. PT REPORTS MILD ABDOMINAL PAIN WITH PALPATION X4 QUADRANTS, BOWEL TONES HYPOACTIVE X4. PT DENIES OTHER PAIN. EILEEN PG PRESENT AND RIGHT UPPER CHEST MEDIPORT ACCESSED, PROTONIX GTT INFUSING. PT HAS MEPILEX IN PLACE TO COCCYX/BUTTOCK AREA R/T SKIN BREAKDOWN ON LEFT BUTTOCK. PT'S SPOUSE, RICHARD, PRESENT AT BEDSIDE AND INCLUDED IN PLAN OF CARE. PT TO BEGIN NPO STATUS AT NOON FOR ANTICIPATED EGD THIS AFTERNOON WITH DR. GRANADOS. PT ALSO AWAITING BED AT [place] AT THIS TIME. WILL CONTINUE TO MONITOR PT CLOSELY.
--- NOTE | 2022-02-05 09:29 | NUR ---
VOMITING PT REPORTS FEELING PAIN IN BACK OF THROAT AND THEN PROCEEDS TO VOMIT - APPEARS BRIGHT RED WITH MIX OF SALIVA/WATER, APPROX 100 ML.
--- NOTE | 2022-02-05 10:28 | NUR ---
HYPOTENSION/DR. ABRAHAM PT UP TO BEDSIDE COMMODE FOR BOWEL MOVEMENT. UPON TRANSFER TO [facility], PT'S HR JUMPS TO 165, SBP 60, PT REPORTS FEELING DIZZY BUT NO LOSS OF CONSCIOUSNESS. PT PASSED APPROX 200 ML DARK RED, JELLY TYPE STOOL. PT BACK TO BED AND THEN VOMITS APPROX 50ML DARK RED BLOOD MIXED WITH FROTHY SPUTUM. CALL TO DR. ABRAHAM, ORDERS RECEIVED FOR STAT H&H, TRANSFUSE 1 UNIT RBC, AND THEN RE-CHECK H&H 1 HR AFTER TRANSFUSION.
--- NOTE | 2022-02-05 10:37 | NUR ---
Met with spouse in the hallway. Spouse is grieving and verbalizing the gan the Pt. has faced for the past year or so. Using theraputic listening an d calming presence establish rapport. Spouse displays evidence of both physical and emotional exhaustion. Prayed with Spouse in the hallway and committed to keep tabs on him and the Pt. throughout the day. Spouse verbalized gratitude for the spiritual care visit.
[2022-02-05 10:44] LABS: Hematocrit 24.5 % (33.0-51.0); Hemoglobin 8.2 g/dL (11.5-16.0)
--- NOTE | 2022-02-05 15:19 | NUR ---
Pt. is awake in bed and welcomes my visit. Pt. is pleasant and I fcilitate a life review. Pt. was unsettled by not being able to get treatment at the facility they have been using in [place]. Establish rapport and spouse arrived. Pt. displays evidence of engagement, and a confident hope. Prayed with Pt. and spouse. Both verbalized gratitude for the spiritual care visit.
[2022-02-05 16:13] LABS: Hematocrit 26.4 % (33.0-51.0); Hemoglobin 9.2 g/dL (11.5-16.0)
--- NOTE | 2022-02-05 16:56 | NUR ---
ACTIVITY/UPDATE PT WAS ABLE TO TRANSFER TO [facility] WITH STANDBY ASSIST. HR DID AGAIN INCREASE, FROM 100 TO 120'S. SBP ALSO DECREASED, FROM 140 TO 115 SYSTOLIC. PT DENIED ANY DIZZINESS OR FEELINGS OF PRE-SYNCOPE, RETURNED TO BED AFTER VOID WITHOUT INCIDENT. PT MEDICATED WITH REGLAN IV PER DR. GRANADOS'S ORDER. AWAITING EGD TEAM AT THIS TIME.
--- NOTE | 2022-02-05 17:38 | NUR ---
SHIFT SUMMARY PT WITH EPISODES OF BLOODY EMESIS AND STOOL THIS A.M. - SEE PREVIOUS NOTES. PT RECEIVED 1 UNIT PRBC THIS SHIFT. NO EPISODES OF BLEEDING SINCE APPROXIMATELY NOON. PT HAD EPISODES OF INCREASED TACHYCARDIA AND ORTHOSTATIC HYPOTENSION WITH TRANSFER TO COMMODE X2, OTHERWISE VITAL SIGNS HAVE REMAINED STABLE. PT ON ROOM AIR. DENIES SHORTNESS OF BREATH OR PAIN EXCEPT WITH ABDOMINAL PALPATION. PROTONIX GTT AND NS INFUSING PER ORDERS. AWAITING EGD THIS EVENING. WILL CONTINUE TO MONITOR PT CLOSELY AND GIVE HANDOFF REPORT TO ONCOMING RN.
--- NOTE | 2022-02-05 18:04 | NUR ---
02/05/22 1804 Zaheer Dejesus History, Chart, Medications and Allergies reviewed before start of procedure.MONITOR INTACT WITH CONTINUOUS PULSE OXIMETRY AND INTERMITTENT BP.3-LEAD EKG REVIEWED WITH PHYSICIAN PRIOR TO START OF PROCEDURE.O2 VIA POM INTACT THROUGHOUT SEDATION/PROCEDURE. Bite Block Placed PATIENT DETERMINED TO BE ASA APPROPRIATE FOR PROPOFOL SEDATION PRIOR TO START OF PROCEDURE BY MALLAMPATI CLASS 1 AIRWAY: COMPLETE VISULATIZATION OF THE SOFT PALATE.
--- NOTE | 2022-02-05 19:10 | NUR ---
EGD COMPLETE. PT HAS EROSION OF STOMACH/BOWEL TISSUE AT SITE OF PREVIOUS STENT PLACEMENT WITH SIGNS OF ACTIVE BLEEDING. PER DR GRANADOS, PLAN TO CONTINUE PROTONIX GTT, CHECK H&H Q4H AND TRANSFUSE PRBC BASED ON HEMOGLOBIN LEVELS. PT MAY HAVE CLEAR LIQUIDS TODAY AND ADVANCE TO FULL LIQUIDS TOMORROW IF PT TOLERATES. DR GRANADOS TO COME BACK TO ROOM AFTER PT FULLY CLEARS SEDATION TO DISCUSS RESULTS OF EGD WITH PT.
[2022-02-05 20:19] LABS: Hematocrit 26.6 % (33.0-51.0); Hemoglobin 9.2 g/dL (11.5-16.0)
--- NOTE | 2022-02-05 21:16 | NUR ---
ASSUMED CARE OF PT AT 1900. PT PRESENTS IN PROCESS OF ENDOSCOPY WITH DR GRANADOS. REPORT RECEIVED AT BEDSIDE AND ADDITIONAL INFORMATION BY DR GRANADOS AND ENDOSCOPY TEAM. PT AWAKENS FROM PROCEDURE WELL, AND IS UP TO BEDSIDE COMMODE WITHOUT VERTIGO. DOES HAVE HEART RATE NEAR 100 BPM'S. PT PASSES MAROON COLORED STOOL. HAVE ALLOWED SPOUSE TO COME BACK TO ROOM, AND ALLOWED QUESTIONS. PT HAS H/H DONE WHICH IS UNCHANGED FROM PREVIOUS. PARAMETERS FOR TRANSFUSIONS IN CHART AND WILL MONITOR IF NECESSARY. PT ALERT AND ORIENTED. PLEASANT AND COOPERATIVE WITH CARE AND ASSESSMENT. WILL REVIEW CHART AND PLAN OF CARE FOR THIS PT.
[2022-02-06 00:36] LABS: Hematocrit 24.1 % (33.0-51.0); Hemoglobin 8.4 g/dL (11.5-16.0)
--- NOTE | 2022-02-06 02:28 | NUR ---
PT CONTINUES TO REST IN BED. TURNS HERSELF IN BED. NO S/S ACTIVE BLEEDING AT THIS TIME. WILL CONTINUE TO MONITOR
[2022-02-06 04:28] LABS: Hematocrit 22.8 % (33.0-51.0)
--- NOTE | 2022-02-06 06:24 | NUR ---
PT HAS HAD SEVERAL MAROON TO RED STOOLS THIS NIGHT. NO COMPLAINTS OF GI UPSET. NO VERTIGO. VSS THROUGHOUT THE NIGHT. TRANSFERS TO BEDSIDE COMMODE WITH STANDBY ASSIST. ONE UNIT PRBC'S INFUSING AT THIS TIME. NO S/S TRANSFUSION REACTIONS TO NOTE. PT REMAINS PLEASANT AND COOPERATIVE WITH CARE. WILL CONTINUE TO MONITOR PT, AND WILL REPORT OFF TO ONCOMING RN.
[2022-02-06 09:22] LABS: Hematocrit 29.9 % (33.0-51.0); Hemoglobin 10.2 g/dL (11.5-16.0)
[2022-02-06 09:46] LABS: Albumin/Globulin Ratio 0.7 (0.8-1.8); Bilirubin, Total 0.6 mg/dL (0.1-1.0); Bun/Creatinine Ratio 16.7 (12.0-20.0); Calcium, Blood 7.8 mg/dL (8.5-10.1); Creatinine, Blood 0.48 mg/dL (0.40-1.00); Globulin, Blood 2.9 g/dL (2.2-4.0); Potassium, Blood 2.9 mmol/L (3.5-5.5); Total Protein, Blood 4.9 g/dL (6.4-8.2)
--- NOTE | 2022-02-06 11:33 | NUR ---
REASSESSMENT PT REMAINS ALERT AND ORIENTED. SHE IS GETTING UP TO THE COMMODE WITH MINIMAL ASSISTANCE, BUT STILL CALLS APPROPRIATELY FOR STAFF TO BE PRESENT. DENIES ANY DIZZINESS. SHE HAS HAD 1 LIQUID BM, DARK RED. DR. ABRAHAM SAID HE SPOKE WITH [facility] AND PT IS NOW 4TH ON THE LIST. LUNGS REMAIN CLEAR, RA. SR TO SIT WITH RATE 90-LOW 100S, BP STABLE. DIET ADVANCED TO FULL LIQUID PT HAS BEEN TOLERATING CLEAR LIQUIDS AND DR. GRANADOS GAVE VERBAL OK TO ADVANCE YESTERDAY PER FRANDY MONAE. POTASSIUM REPLACEMENT ORDERED BY DR. ABRAHAM. PT REFUSED TO TRY AND SWALLOW THE PILL POTASSIUM SO SWITCHED TO LIQUID, WHICH PT IS SIPPING ON BUT SAYING SHE DOESN'T KNOW IF SHE WILL BE ABLE TO DRINK IT ALL. PT IS RECEIVING IV POTASSIUM WELL. PT'S ROXIE HAS BEEN PRESENT FOR MOST OF THE MORNING AND PT'S AT THE BEDSIDE NOW. ALL HAVE BEEN UPDATED.
[2022-02-06 11:53] LABS: Hematocrit 28.9 % (33.0-51.0); Hemoglobin 9.7 g/dL (11.5-16.0)
--- NOTE | 2022-02-06 14:58 | NUR ---
SPOKE WITH DR. ABRAHAM ABOUT ORDER TO DECREASE FREQUENCY OF H/H CHECKS. UPDATED HIM ON PT'S HEMATEMESIS WITH BLOOD CLOTS AROUND NOON TODAY AND HE SAID TO KEEP CHECKS EVERY 6 HOURS.
--- NOTE | 2022-02-06 16:46 | NUR ---
SHIFT SUMMARY PT HAS CONTINUED TO FEEL NAUSEOUS SINCE SHE VOMITTED SOME BLOOD AROUND NOON. SHE TOLERATED HER NOON CARAFATE, BUT DIDN'T WANT TO TRY THE 2ND DOSE OF POTASSIUM. HER H/H IS ONCE AGAIN SLOWLY DROPPING. SPOKE WITH DR. GRANADOS AND HE AGREES WITH KEEPING H/H Q4 DUE TO PT'S EMESIS. BP HAS HELD STABLE, BUT PT'S HR HAS BEEN INCREASING THROUGHOUT THE AFTERNOON, CURRENTLY 120. LUGNS REMAIN CLEAR, RA. VOIDING WITHOUT ISSUE. PT'S SPENT MOST OF THE AFTERNOON WITH HER. CONTINUING TO MONITOR.
--- NOTE | 2022-02-06 17:59 | NUR ---
PT HAD EPISODE OF EMESIS WHICH CONSISTED OF MIX OF CLEAR/BUBBLY LIQUID AND RED LIQUID WITH NO CLOTS, TOTAL 120 ML.
[2022-02-06 19:35] LABS: Hemoglobin 8.5 g/dL (11.5-16.0)
[2022-02-06 23:56] LABS: Hematocrit 24.6 % (33.0-51.0); Hemoglobin 8.5 g/dL (11.5-16.0)
[2022-02-07 04:51] LABS: BASOPHILS ABSOLUTE AUTO 0.04 K/mm3 (0.00-0.23); BASOPHILS PERCENT AUTO 1 % (0-2); EOSINOPHILS ABSOLUTE AUTO 0.02 K/mm3 (0.00-0.68); EOSINOPHILS PERCENT AUTO 0 % (0-6); Hematocrit 23.4 % (33.0-51.0); IMMATURE GRAN ABSOLUTE AUTO 0.04 K/mm3 (0.00-0.10); IMMATURE GRAN PERCENT AUTO 1 % (0-1); LYMPHOCYTES ABSOLUTE AUTO 0.51 K/mm3 (0.84-5.20); LYMPHOCYTES PERCENT AUTO 6 % (21-46); MONOCYTES ABSOLUTE AUTO 0.59 K/mm3 (0.16-1.47); MONOCYTES PERCENT AUTO 7 % (4-13); Mean Corpuscular HGB 30.5 pg (26.0-34.0); Mean Corpuscular HGB Conc 34.2 g/dL (31.5-36.5); Mean Corpuscular Volume 89 fL (80-100); Mean Platelet Volume 9.9 fL (9.1-12.4); NEUTROPHILS ABSOLUTE AUTO 7.19 K/mm3 (1.96-9.15); NEUTROPHILS PERCENT AUTO 86 % (41-73); Platelet Count 180 K/mm3 (150-400); RDW Coefficient Variation 19.5 % (11.7-14.2); RDW Standard Deviation 56.8 fL (35.1-46.3); Red Blood Cell Count 2.62 M/mm3 (3.80-5.20); White Blood Cell Count 8.39 K/mm3 (4.00-11.30)
[2022-02-07 05:11] LABS: Bun/Creatinine Ratio 9.8 (12.0-20.0); Calcium, Blood 7.1 mg/dL (8.5-10.1); Creatinine, Blood 0.41 mg/dL (0.40-1.00); Potassium, Blood 3.3 mmol/L (3.5-5.5)
--- NOTE | 2022-02-07 07:27 | NUR ---
DISCUSSED WITH DR CONTRERAS PT'S NIGHT WITH HER EMESIS OF BLOOD CLOTS. ORDERS RECEIVED. PT UP TO BEDSIDE COMMODE WHEREAS SHE BECOMES LIGHTHEADED.
--- NOTE | 2022-02-07 08:29 | NUR ---
AM NOTE... ASSUMED CARE OF PT AT 0700, AT THE START OF THIS SHIFT THE PT WAS UP TO THE BSC TO VOID, THE PT'S HR INCREASED FROM SINUS TACH IN THE 100'S-110'S TO THE 150'S-160'S. THE PT HAD AN EPISODE OF EMESIS. 200MLS OF COCO RED BLOOD WERE NOTED IN THE EMESIS BAG. THE PT VOIDED AND ALSO HAD A LIQUID BRIGHT MAROON STOOL. WHILE UP TO THE BSC THE PT STATED SHE FELT DIZZY AND "FUZZY" SHE WAS ALSO PALE. THE PT WAS HELPED BACK TO BED, PT WAS ALSO HYPOTENSIVE DURING THIS TIME WITH SBPs IN THE LOW 90'S. ONCE BACK INTO BED THE PT'S BP AND HR IMPROVED BACK TO THE LOW 100'S-110'S. TRACE EDEMA IS NOTED TO THE PT'S BLE. SHE IS ON RA WITH O2 SATS >95% L/S CLEAR T/O. RR IS 12-16. BT PRESENT AND HYPOACTIVE, ABD IS TENDER TO PALPATION. CURRENTLY THE PT IS GETTING 1 UNIT OF PRBCs. THE PT'S IS AT THE BEDSIDE. HE WAS UPDATED ON THE PT'S CONDTION AND PLAN OF CARE FOR THE DAY. CALL LIGHT IN REACH WILL CONTINUE TO MONITOR.
[2022-02-07 08:45] LABS: International Normalized Ratio 1.18; Prothrombin Time Results 12.3 Sec (9.7-11.5)
--- NOTE | 2022-02-07 10:44 | NUR ---
PT UPDATE.... THE PT'S PRBCs ENDED AT 0920, THE PT'S HR CONTINUES TO BE SINUS TACH IN THE 100'S-110'S AND BP IS MUCH IMPROVED. THE PT STATES SHE "FEELS BETTER, NO LONGER FUZZY." PT'S COLOR HAS IMPROVED WELL. PT WAS REQUESTING HER BREAKFAST TRAY. THE PT'S SON AND DAUGHTER ARE ALSO AT THE BEDSIDE. ALL FAMILY UPDATED ON THE PLAN OF CARE AND PLAN TO TRANSFER TO [facility]. WILL CONTINUE TO MONITOR.
[2022-02-07 10:54] LABS: Hematocrit 29.6 % (33.0-51.0); Hemoglobin 9.7 g/dL (11.5-16.0)
--- NOTE | 2022-02-07 12:23 | NUR ---
PT TRANSFER TO [facility]... PT LEFT ICU WITH EMS ESCORT TO [facility] RM 21. PT WAS TAKEN BY EMS AT 1220. REPORT CALLED TO JEFFERY WISE AT [facility]. ALL PT'S BELONGINGS SENT WITH THE PT'S .
== END 2022-02-07 12:28 | disposition short-term general hospital (02) | DRG 920 ==
LOC: ER 18:25 → PCU 18:26 → ER 18:26 → PCU 18:26 → ICUW 02-04 15:55 → PCU 02-04 15:56 → ICUW 02-05 08:36
PROVIDERS: Emergency Medicine; Internal Medicine; Internal Medicine Gastroenterology; ADMIT Student in an Organized Health Care Education/Training Program
PROC: 30233N1 Transfusion of Nonautologous Red Blood Cells into Peripheral Vein, Percutaneous Approach (ICD-10-PCS; principal; 2022-02-04)
PROC: 30233N1 Transfusion of Nonautologous Red Blood Cells into Peripheral Vein, Percutaneous Approach (ICD-10-PCS; 2022-02-05)
PROC: 0DJ08ZZ Inspection of Upper Intestinal Tract, Via Natural or Artificial Opening Endoscopic (ICD-10-PCS; 2022-02-05)
PROC: 30233N1 Transfusion of Nonautologous Red Blood Cells into Peripheral Vein, Percutaneous Approach (ICD-10-PCS; 2022-02-07)
DX: T85.838A Hemorrhage due to other internal prosthetic devices, implants and grafts, initial encounter (principal); C15.9 Malignant neoplasm of esophagus, unspecified; D68.32 Hemorrhagic disorder due to extrinsic circulating anticoagulants; D62 Acute posthemorrhagic anemia; K91.858 Other complications of intestinal pouch; K56.699 Other intestinal obstruction unspecified as to partial versus complete obstruction; Z20.822 Contact with and (suspected) exposure to COVID-19; M19.90 Unspecified osteoarthritis, unspecified site; E03.9 Hypothyroidism, unspecified; I10 Essential (primary) hypertension; E78.5 Hyperlipidemia, unspecified; E11.9 Type 2 diabetes mellitus without complications; E53.8 Deficiency of other specified B group vitamins; F41.8 Other specified anxiety disorders; M06.9 Rheumatoid arthritis, unspecified; T45.515A Adverse effect of anticoagulants, initial encounter; Z85.3 Personal history of malignant neoplasm of breast; Z86.718 Personal history of other venous thrombosis and embolism; Z98.84 Bariatric surgery status; Z90.49 Acquired absence of other specified parts of digestive tract; Z90.10 Acquired absence of unspecified breast and nipple; Z98.890 Other specified postprocedural states; Z88.6 Allergy status to analgesic agent; Z79.01 Long term (current) use of anticoagulants; Z79.899 Other long term (current) drug therapy; Y83.1 Surgical operation with implant of artificial internal device as the cause of abnormal reaction of the patient, or of later complication, without mention of misadventure at the time of the procedure
CPT/HCPCS: 0241U; 36415; 36430; 80048; 80053; 83735; 85014; 85018; 85025; 85384; 85610; 85730; 86850; 86900; 86901; 86923; 93005; 93010; 93970; 96374; 96376; 99285-25; A9270; C1751; C9113; G0378; J0171; J1430; J2250; J2405; J2704; J2765; J3480; J7030; J7040; J7050; J7120; P9016